=== PATIENT | male | born 1935 | race Caucasian/White ===

== ENCOUNTER 2017-07-04 13:27 | Outpatient (CLI) | payer MEDICARE ==
[~2017-07-04 13:27] MED LIST: ASPI-1265 PO; BUSP10TA11 PO; CHOL100044 PO; LOVA20TA2 PO; MELO-102 PO; OMEP-50 PO; POTA8TAB3 PO; SPIR1TAB4 PO
== END 2017-07-04 23:59 | disposition home or self-care (01) ==
LOC: CARD DIAG 13:27
PROVIDERS: ATTEND Internal Medicine Cardiovascular Disease
DX: I08.2 Rheumatic disorders of both aortic and tricuspid valves (principal); R53.83 Other fatigue; I10 Essential (primary) hypertension
CPT/HCPCS: 93306

== ENCOUNTER 2017-09-28 07:17 | Inpatient (IN) | payer MEDICARE ==
[~2017-09-28] VITALS: Ht 185.4 cm; Wt 90.9 kg
[2017-09-28] MEDS ORDERED: normal saline 1000ML IV soln IV ONE (07:20)
[2017-09-28] MEDS ORDERED: azithromycin/NS 500mg/250ml 250 ML IV ONE (07:30)
[2017-09-28] MEDS ORDERED: CefTRIAXone 2gm/D5W 50ml 50 ML IV ONE (07:30)
[2017-09-28] MEDS ORDERED: ibuprofen 200mg tablet PO ONE (07:40)
[2017-09-28 07:41] LABS: CLARITY,URINE CLEAR (Clear); COLOR,URINE YELLOW (Yellow); GLUCOSE, URINE NEGATIVE (Neg); KETONES,URINE NEGATIVE (Neg); LEUKOCYTE ESTERASE ,URINE NEGATIVE (Neg); NITRITES, URINE NEGATIVE (Neg); OCCULT BLOOD,URINE TRACE-INTACT (Neg); PH,URINE 7.5 (4.8-8.0); PROTEIN,URINE NEGATIVE (Neg); UROBILINOGEN,URINE 0.2 E.U/dL (0.2-1.0)
[2017-09-28] MEDS ORDERED: GABA-534 PO (07:50)
[2017-09-28] MEDS ORDERED: BUSP15TA12 PO (07:51)
[2017-09-28 07:53] LABS: UA COLLECTION TYPE VOIDED
[2017-09-28 07:54] LABS: BACTERIA,URINE NONE SEEN /HPF (Neg); MUCUS STRANDS FEW /LPF (Neg); RBC,URINE 0-2 /HPF (0-2); SQUAMOUS EPITHELIAL CELL,UR NONE SEEN /LPF (FEW); WBC,URINE NONE SEEN /HPF (0-4)
[2017-09-28] MEDS ORDERED: HYDR200T84 PO (08:01)
[2017-09-28] MEDS ORDERED: ZOLP5TAB8 PO (08:01)
[2017-09-28 08:25] LABS: BASOPHILS % (AUTO) 0.1 % (0-1); EOSINOPHILS # (AUTO) 0.1 X10'3 (0-0.9); EOSINOPHILS % (AUTO) 0.8 % (0-6); HEMATOCRIT 43.6 % (42.0-52.0); HEMOGLOBIN 14.7 g/dl (14.0-17.9); LYMPHOCYTES # (AUTO) 0.1 X10'3 (1.1-4.8); MEAN CORPUSCULAR HEMOGLOBIN 29.1 PG (27.0-31.0); MEAN CORPUSCULAR HGB CONC 33.7 % (33.0-36.5); MEAN CORPUSCULAR VOLUME 86.6 FL (78-98); MEAN PLATELET VOLUME 7.3 FL (7.4-10.4); MONOCYTES # (AUTO) 0.2 X10'3 (0-0.9); MONOCYTES % (AUTO) 1.8 % (2-12); NEUTROPHILS # (AUTO) 9.4 X10'3 (1.8-7.7); NEUTROPHILS % (AUTO) 96.3 % (42-75); PLATELET COUNT 198 X10'3 (140-440); RED BLOOD COUNT 5.04 X10'6 (4.70-6.10); RED CELL DISTRIBUTION WIDTH 13.6 % (11.5-14.5); WHITE BLOOD COUNT 9.8 X10'3 (4.5-11.0)
[2017-09-28 08:37] LABS: PLATELET ESTIMATE NORMAL; TOTAL CELLS COUNTED 100
[2017-09-28 08:38] LABS: PARTIAL THROMBOPLASTIN TIME 31 SECONDS (22-32); PROTHROMBIN TIME 10.5 SECONDS (9.0-12.0)
[2017-09-28 08:43] LABS: ALANINE AMINOTRANSFERASE 26 U/L (12-78); ALBUMIN 3.6 G/DL (3.4-5.0); ALBUMIN/GLOBULIN RATIO 0.8 (1.1-1.5); ALKALINE PHOSPHATASE 116 IU/L (46-116); ANION GAP 9 (8-16); ASPARTATE AMINO TRANSFERASE 19 U/L (10-37); BLOOD UREA NITROGEN 19 MG/DL (7-18); BUN/CREATININE RATIO 13.5 (5.4-32.0); CALCIUM 9.6 MG/DL (8.5-10.1); CHLORIDE 98 MMOL/L (99-107); CREATININE 1.41 MG/DL (0.60-1.10); GLUCOSE 112 MG/DL (70-104); POTASSIUM 3.5 MMOL/L (3.5-5.1); SODIUM 135 MMOL/L (135-145); TOTAL CARBON DIOXIDE 28.3 MMOL/L (24-32); TOTAL PROTEIN 8.2 G/DL (6.4-8.2); eGFR 48 ML/MIN
[2017-09-28 08:51] LABS: MAGNESIUM 1.6 MG/DL (1.5-2.4); TROPONIN I < 0.04 NG/ML (0.0-0.05)
[2017-09-28] MEDS ORDERED: magnesium Cl slow-release 64mg tablet PO PRN (10:30)
[2017-09-28] MEDS ORDERED: mag hydrox/Alum hydrox/simeth 30ml oral suspension PO PRN (10:30)
[2017-09-28] MEDS ORDERED: magnesium 4gm in 100ml NS 100 ML IV PRN (10:30)
[2017-09-28] MEDS ORDERED: magnesium 1gm/100ml D5W IVPB 100 ML IV PRN (10:30)
[2017-09-28] MEDS ORDERED: potassium Cl 40MEQ/NS 500ml 500 ML IV PRN ×2 (10:30)
[2017-09-28] MEDS ORDERED: ondansetron/PF 4mg/2ml inj IV PRN (10:30)
[2017-09-28] MEDS ORDERED: acetaminophen 325mg tablet PO PRN (10:30)
[2017-09-28] MEDS: normal saline 1000ml 1,000 ML IV SCH ×2 (10:55→20:43)
[2017-09-28 18:00] VITALS: BP 105/47
[2017-09-28] MEDS ORDERED: pneumococcal 23-VAL P-sac vacc 25 mcg/0.5ml vial IMVAC ONE (19:15)
[2017-09-28] MEDS: gabapentin 300mg capsule PO SCH (20:42)
[2017-09-28] MEDS: docusate sod 100mg capsule PO SCH (20:42)
[2017-09-28] MEDS ORDERED: gabapentin 400mg capsule PO SCH (21:00)
[2017-09-28 22:00] VITALS: BP 107/51
[2017-09-29] MEDS: zolpidem 5mg tablet PO PRN ×2 (01:18→21:36)
[2017-09-29] MEDS: normal saline 1000ml 1,000 ML IV SCH ×2 (05:52→17:05)
[2017-09-29 06:13] LABS: BASOPHILS % (AUTO) 0.2 % (0-1); EOSINOPHILS # (AUTO) 0.6 X10'3 (0-0.9); EOSINOPHILS % (AUTO) 3.2 % (0-6); HEMATOCRIT 36.7 % (42.0-52.0); HEMOGLOBIN 12.3 g/dl (14.0-17.9); LYMPHOCYTES # (AUTO) 1.1 X10'3 (1.1-4.8); LYMPHOCYTES % (AUTO) 5.8 % (21-51); MEAN CORPUSCULAR HEMOGLOBIN 29.2 PG (27.0-31.0); MEAN CORPUSCULAR HGB CONC 33.6 % (33.0-36.5); MEAN PLATELET VOLUME 7.3 FL (7.4-10.4); MONOCYTES # (AUTO) 1.5 X10'3 (0-0.9); MONOCYTES % (AUTO) 7.8 % (2-12); NEUTROPHILS # (AUTO) 16.1 X10'3 (1.8-7.7); PLATELET COUNT 195 X10'3 (140-440); RED BLOOD COUNT 4.22 X10'6 (4.70-6.10); RED CELL DISTRIBUTION WIDTH 13.9 % (11.5-14.5); WHITE BLOOD COUNT 19.4 X10'3 (4.5-11.0)
[2017-09-29 06:29] LABS: ALBUMIN 2.6 G/DL (3.4-5.0); ANION GAP 12 (8-16); BLOOD UREA NITROGEN 22 MG/DL (7-18); BUN/CREATININE RATIO 16.5 (5.4-32.0); CALCIUM 8.9 MG/DL (8.5-10.1); CHLORIDE 102 MMOL/L (99-107); CREATININE 1.33 MG/DL (0.60-1.10); GLUCOSE 97 MG/DL (70-104); MAGNESIUM 1.7 MG/DL (1.5-2.4); POTASSIUM 3.4 MMOL/L (3.5-5.1); SODIUM 137 MMOL/L (135-145); TOTAL CARBON DIOXIDE 23.3 MMOL/L (24-32); eGFR 52 ML/MIN
[2017-09-29] MEDS: K and/or MAG REPLACEMENT MC SCH (07:05)
[2017-09-29 07:06] LABS: PLATELET ESTIMATE NORMAL; TOTAL CELLS COUNTED 100; TOXIC GRANULATION 1+
[2017-09-29 07:20] VITALS: BP 94/52
[2017-09-29] MEDS: aspirin 81mg tab.chew PO SCH (07:30)
[2017-09-29] MEDS: enoxaparin 40mg/0.4ml syringe SUBCUT SCH (07:30)
[2017-09-29] MEDS: gabapentin 300mg capsule PO SCH ×2 (07:30→19:56)
[2017-09-29] MEDS: hydroxychloroquine 200mg tablet PO SCH (07:30)
[2017-09-29] MEDS: busPIRone 15mg tablet PO SCH (07:30)
[2017-09-29] MEDS: azithromycin/NS 500mg/250ml 250 ML IV SCH (07:31)
[2017-09-29] MEDS: docusate sod 100mg capsule PO SCH ×2 (07:31→19:57)
[2017-09-29] MEDS ORDERED: cefTRIAXone 1g/NS 100ml IVPB 100 ML IV SCH (08:00)
[2017-09-29] MEDS: piperacillin/tazo 3.375gm/50ml 50 ML IV SCH ×3 (10:38→19:56)
[2017-09-29 10:44] VITALS: BP 111/52
[2017-09-29] MEDS: vancomycin inj 1,250 MG in normal saline 250ml IV soln 250 ML IV SCH ×2 (12:21→21:34)
[2017-09-29 18:00] VITALS: BP 145/51
[2017-09-29] MEDS: potassium Cl 20 mEq SR tablet PO PRN (19:56)
[2017-09-29] MEDS: lactobacillus rhamnosus 10,000 MMU CELLS/CAPSULE PO SCH (19:57)
[2017-09-29 22:00] VITALS: BP 144/57
[2017-09-30] MEDS: potassium Cl 20 mEq SR tablet PO PRN (00:54)
[2017-09-30] MEDS: piperacillin/tazo 3.375gm/50ml 50 ML IV SCH ×4 (01:02→20:51)
[2017-09-30] MEDS: normal saline 1000ml 1,000 ML IV SCH ×3 (03:19→23:05)
[2017-09-30 06:00] VITALS: BP 130/66
[2017-09-30 06:08] LABS: BASOPHILS # (AUTO) 0.1 X10'3 (0-0.2); BASOPHILS % (AUTO) 0.5 % (0-1); EOSINOPHILS # (AUTO) 0.9 X10'3 (0-0.9); EOSINOPHILS % (AUTO) 7.6 % (0-6); HEMATOCRIT 33.4 % (42.0-52.0); HEMOGLOBIN 11.5 g/dl (14.0-17.9); LYMPHOCYTES # (AUTO) 0.6 X10'3 (1.1-4.8); MEAN CORPUSCULAR HGB CONC 34.5 % (33.0-36.5); MEAN PLATELET VOLUME 7.7 FL (7.4-10.4); MONOCYTES # (AUTO) 0.7 X10'3 (0-0.9); MONOCYTES % (AUTO) 6.4 % (2-12); NEUTROPHILS # (AUTO) 9.2 X10'3 (1.8-7.7); NEUTROPHILS % (AUTO) 80.5 % (42-75); PLATELET COUNT 190 X10'3 (140-440); RED BLOOD COUNT 3.84 X10'6 (4.70-6.10); RED CELL DISTRIBUTION WIDTH 14.2 % (11.5-14.5); WHITE BLOOD COUNT 11.4 X10'3 (4.5-11.0)
[2017-09-30 06:25] LABS: ALBUMIN 2.3 G/DL (3.4-5.0); ANION GAP 6 (8-16); BLOOD UREA NITROGEN 16 MG/DL (7-18); BUN/CREATININE RATIO 12.4 (5.4-32.0); CALCIUM 8.6 MG/DL (8.5-10.1); CHLORIDE 106 MMOL/L (99-107); CREATININE 1.29 MG/DL (0.60-1.10); GLUCOSE 108 MG/DL (70-104); MAGNESIUM 1.8 MG/DL (1.5-2.4); POTASSIUM 3.7 MMOL/L (3.5-5.1); SODIUM 138 MMOL/L (135-145); TOTAL CARBON DIOXIDE 26.2 MMOL/L (24-32); eGFR 54 ML/MIN
[2017-09-30] MEDS: lactobacillus rhamnosus 10,000 MMU CELLS/CAPSULE PO SCH ×2 (07:35→20:51)
[2017-09-30] MEDS: hydroxychloroquine 200mg tablet PO SCH (07:36)
[2017-09-30] MEDS: docusate sod 100mg capsule PO SCH ×2 (07:36→20:51)
[2017-09-30] MEDS: gabapentin 300mg capsule PO SCH ×2 (07:36→20:51)
[2017-09-30] MEDS: aspirin 81mg tab.chew PO SCH (07:36)
[2017-09-30] MEDS: enoxaparin 40mg/0.4ml syringe SUBCUT SCH (07:37)
[2017-09-30] MEDS: azithromycin/NS 500mg/250ml 250 ML IV SCH (07:38)
[2017-09-30] MEDS: busPIRone 15mg tablet PO SCH (07:42)
[2017-09-30] MEDS: K and/or MAG REPLACEMENT MC SCH (07:54)
[2017-09-30] MEDS: vancomycin inj 1,250 MG in normal saline 250ml IV soln 250 ML IV SCH ×2 (10:29→22:06)
[2017-09-30 11:34] VITALS: BP 110/61
[2017-09-30 18:00] VITALS: BP 112/76
[2017-09-30] MEDS ORDERED: VANCOMYCIN LEVEL IV ONE (21:30)
[2017-09-30 22:00] VITALS: BP 128/63
[2017-09-30] MEDS: zolpidem 5mg tablet PO PRN (23:19)
[2017-10-01] MEDS: piperacillin/tazo 3.375gm/50ml 50 ML IV SCH ×4 (02:20→19:47)
[2017-10-01 06:00] VITALS: BP 107/62
[2017-10-01 06:01] LABS: HEMATOCRIT 37.7 % (42.0-52.0); HEMOGLOBIN 12.7 g/dl (14.0-17.9); MEAN CORPUSCULAR HEMOGLOBIN 29.3 PG (27.0-31.0); MEAN CORPUSCULAR HGB CONC 33.6 % (33.0-36.5); MEAN CORPUSCULAR VOLUME 87.2 FL (78-98); MEAN PLATELET VOLUME 7.8 FL (7.4-10.4); PLATELET COUNT 215 X10'3 (140-440); RED BLOOD COUNT 4.33 X10'6 (4.70-6.10); RED CELL DISTRIBUTION WIDTH 14.2 % (11.5-14.5); WHITE BLOOD COUNT 8.1 X10'3 (4.5-11.0)
[2017-10-01 06:16] LABS: ALBUMIN 2.8 G/DL (3.4-5.0); ANION GAP 9 (8-16); BLOOD UREA NITROGEN 13 MG/DL (7-18); BUN/CREATININE RATIO 10.2 (5.4-32.0); CALCIUM 9.4 MG/DL (8.5-10.1); CHLORIDE 105 MMOL/L (99-107); CREATININE 1.27 MG/DL (0.60-1.10); GLUCOSE 102 MG/DL (70-104); MAGNESIUM 1.7 MG/DL (1.5-2.4); POTASSIUM 3.6 MMOL/L (3.5-5.1); SODIUM 140 MMOL/L (135-145); TOTAL CARBON DIOXIDE 25.8 MMOL/L (24-32); eGFR 55 ML/MIN
[2017-10-01] MEDS: aspirin 81mg tab.chew PO SCH (07:12)
[2017-10-01] MEDS: hydroxychloroquine 200mg tablet PO SCH (07:13)
[2017-10-01] MEDS: docusate sod 100mg capsule PO SCH ×2 (07:13→19:48)
[2017-10-01] MEDS: gabapentin 300mg capsule PO SCH ×2 (07:13→19:48)
[2017-10-01] MEDS: lactobacillus rhamnosus 10,000 MMU CELLS/CAPSULE PO SCH ×2 (07:13→19:48)
[2017-10-01] MEDS: busPIRone 15mg tablet PO SCH (07:13)
[2017-10-01] MEDS: azithromycin 250mg tablet PO SCH (07:13)
[2017-10-01] MEDS: enoxaparin 40mg/0.4ml syringe SUBCUT SCH (07:15)
[2017-10-01 07:39] LABS: PLATELET ESTIMATE NORMAL; TOTAL CELLS COUNTED 100
[2017-10-01] MEDS: K and/or MAG REPLACEMENT MC SCH (08:00)
[2017-10-01 10:00] VITALS: BP 163/93
[2017-10-01] MEDS: normal saline 1000ml 1,000 ML IV SCH ×2 (10:19→19:05)
[2017-10-01] MEDS: vancomycin inj 1,250 MG in normal saline 250ml IV soln 250 ML IV SCH ×2 (10:19→22:03)
[2017-10-01 17:00] VITALS: BP 125/74
[2017-10-01] MEDS ORDERED: acetaminophen 325mg tablet PO PRN (18:35)
[2017-10-01 22:00] VITALS: BP 141/74
[2017-10-01] MEDS: zolpidem 5mg tablet PO PRN (23:17)
[2017-10-02] MEDS: piperacillin/tazo 3.375gm/50ml 50 ML IV SCH ×2 (01:48→07:33)
[2017-10-02] MEDS: normal saline 1000ml 1,000 ML IV SCH (05:44)
[2017-10-02 05:59] LABS: BASOPHILS % (AUTO) 0.7 % (0-1); EOSINOPHILS # (AUTO) 0.8 X10'3 (0-0.9); EOSINOPHILS % (AUTO) 10.6 % (0-6); HEMATOCRIT 37.9 % (42.0-52.0); HEMOGLOBIN 12.7 g/dl (14.0-17.9); LYMPHOCYTES # (AUTO) 0.8 X10'3 (1.1-4.8); LYMPHOCYTES % (AUTO) 11.5 % (21-51); MEAN CORPUSCULAR HEMOGLOBIN 29.3 PG (27.0-31.0); MEAN CORPUSCULAR HGB CONC 33.6 % (33.0-36.5); MEAN CORPUSCULAR VOLUME 87.2 FL (78-98); MEAN PLATELET VOLUME 7.9 FL (7.4-10.4); MONOCYTES # (AUTO) 0.8 X10'3 (0-0.9); MONOCYTES % (AUTO) 10.3 % (2-12); NEUTROPHILS % (AUTO) 66.9 % (42-75); PLATELET COUNT 241 X10'3 (140-440); RED BLOOD COUNT 4.34 X10'6 (4.70-6.10); RED CELL DISTRIBUTION WIDTH 13.9 % (11.5-14.5); WHITE BLOOD COUNT 7.4 X10'3 (4.5-11.0)
[2017-10-02 06:00] VITALS: BP 128/65
[2017-10-02 06:11] LABS: ALBUMIN 2.9 G/DL (3.4-5.0); ANION GAP 10 (8-16); BLOOD UREA NITROGEN 15 MG/DL (7-18); BUN/CREATININE RATIO 11.9 (5.4-32.0); CALCIUM 9.6 MG/DL (8.5-10.1); CHLORIDE 104 MMOL/L (99-107); CREATININE 1.26 MG/DL (0.60-1.10); GLUCOSE 95 MG/DL (70-104); MAGNESIUM 1.9 MG/DL (1.5-2.4); POTASSIUM 3.4 MMOL/L (3.5-5.1); SODIUM 140 MMOL/L (135-145); TOTAL CARBON DIOXIDE 26.3 MMOL/L (24-32); eGFR 55 ML/MIN
[2017-10-02] MEDS: azithromycin 250mg tablet PO SCH (07:33)
[2017-10-02] MEDS: hydroxychloroquine 200mg tablet PO SCH (07:34)
[2017-10-02] MEDS: lactobacillus rhamnosus 10,000 MMU CELLS/CAPSULE PO SCH (07:34)
[2017-10-02] MEDS: gabapentin 300mg capsule PO SCH (07:35)
[2017-10-02] MEDS: aspirin 81mg tab.chew PO SCH (07:35)
[2017-10-02] MEDS: busPIRone 15mg tablet PO SCH (07:35)
[2017-10-02] MEDS: docusate sod 100mg capsule PO SCH (07:36)
[2017-10-02] MEDS: enoxaparin 40mg/0.4ml syringe SUBCUT SCH (07:36)
[2017-10-02] MEDS ORDERED: potassium Cl 40MEQ/NS 500ml 500 ML IV PRN ×2 (09:15)
[2017-10-02] MEDS ORDERED: potassium Cl 20 mEq SR tablet PO PRN ×2 (09:15)
[2017-10-02] MEDS: K and/or MAG REPLACEMENT MC SCH (09:55)
[2017-10-02] MEDS: vancomycin inj 1,250 MG in normal saline 250ml IV soln 250 ML IV SCH (09:56)
[2017-10-02 10:00] VITALS: BP 111/69
[2017-10-02] MEDS ORDERED: pneumococcal 23-VAL P-sac vacc 25 mcg/0.5ml vial IMVAC ONE (10:00)
[2017-10-02] MEDS ORDERED: AZI25OT PO (13:46)
== END 2017-10-02 15:40 | disposition home or self-care (01) | DRG 871 ==
LOC: ER 07:18 → ED HOLD 10:27 → ORTHO 4S 12:10
PROVIDERS: ADMIT Internal Medicine; ATTEND Internal Medicine
PROC: 5A09357 Assistance with Respiratory Ventilation, Less than 24 Consecutive Hours, Continuous Positive Airway Pressure (ICD-10-PCS; principal; 2017-09-28)
PROC: 5A09357 Assistance with Respiratory Ventilation, Less than 24 Consecutive Hours, Continuous Positive Airway Pressure (ICD-10-PCS; 2017-09-30)
PROC: 5A09357 Assistance with Respiratory Ventilation, Less than 24 Consecutive Hours, Continuous Positive Airway Pressure (ICD-10-PCS; 2017-10-01)
DX: A41.9 Sepsis, unspecified organism (principal); J18.9 Pneumonia, unspecified organism; N17.9 Acute kidney failure, unspecified; I12.9 Hypertensive chronic kidney disease with stage 1 through stage 4 chronic kidney disease, or unspecified chronic kidney disease; N18.9 Chronic kidney disease, unspecified; E86.0 Dehydration; E87.6 Hypokalemia; G62.9 Polyneuropathy, unspecified; Z89.021 Acquired absence of right finger(s); Z79.899 Other long term (current) drug therapy; Z79.82 Long term (current) use of aspirin; Z23 Encounter for immunization
CPT/HCPCS: 36415; 71045; 71250; 80048; 80053; 80202; 81001; 83605; 83735; 83880; 84145; 84484; 85007; 85025; 85027; 85610; 85730; 87040; 87070; 90732; 93005; 96365; 96366; 96368; 97162; 97530; 99285; J0456; J0696; J1650; J2405; J2543; J3370; J7030

== ENCOUNTER 2019-03-23 05:54 | Day surgery (SDC) | payer MEDICARE ==
[2019-03-22 10:24] LABS: ALBUMIN 3.7 G/DL (3.4-5.0); ANION GAP 6 (8-16); BLOOD UREA NITROGEN 25 MG/DL (7-18); BUN/CREATININE RATIO 21.7 (5.4-32.0); CALCIUM 9.2 MG/DL (8.5-10.1); CHLORIDE 101 MMOL/L (99-107); CREATININE 1.15 MG/DL (0.60-1.10); GLUCOSE 96 MG/DL (70-104); POTASSIUM 3.7 MMOL/L (3.5-5.1); SODIUM 136 MMOL/L (135-145); TOTAL CARBON DIOXIDE 29.1 MMOL/L (24-32); eGFR 61 ML/MIN
[2019-03-22 10:26] LABS: BASOPHILS # (AUTO) 0.1 X10'3 (0-0.2); BASOPHILS % (AUTO) 1.2 % (0-1); EOSINOPHILS # (AUTO) 0.1 X10'3 (0-0.9); EOSINOPHILS % (AUTO) 2.2 % (0-6); HEMOGLOBIN 13.4 g/dl (14.0-17.9); LYMPHOCYTES # (AUTO) 0.7 X10'3 (1.1-4.8); LYMPHOCYTES % (AUTO) 15.2 % (21-51); MEAN CORPUSCULAR HEMOGLOBIN 29.3 PG (27.0-31.0); MEAN CORPUSCULAR HGB CONC 34.2 g/dL (33.0-36.5); MEAN CORPUSCULAR VOLUME 85.6 FL (78-98); MEAN PLATELET VOLUME 7.2 FL (7.4-10.4); MONOCYTES # (AUTO) 0.8 X10'3 (0-0.9); MONOCYTES % (AUTO) 18.9 % (2-12); NEUTROPHILS # (AUTO) 2.8 X10'3 (1.8-7.7); NEUTROPHILS % (AUTO) 62.5 % (42-75); PLATELET COUNT 192 X10'3 (140-440); RED BLOOD COUNT 4.56 X10'6 (4.70-6.10); RED CELL DISTRIBUTION WIDTH 13.4 % (11.5-14.5); WHITE BLOOD COUNT 4.4 X10'3 (4.5-11.0)
[2019-03-22 10:28] LABS: PARTIAL THROMBOPLASTIN TIME 31 SECONDS (22-32)
[2019-03-22 10:53] LABS: TOTAL CELLS COUNTED 100
[2019-03-22 10:54] LABS: LARGE PLATELETS FEW; PLATELET ESTIMATE NORMAL
[~2019-03-23] VITALS: Ht 177.8 cm; Wt 81.5 kg
[2019-03-23] VITALS (14 sets, daily range): BP systolic 97–155; BP diastolic 49–77
[~2019-03-23 05:54] MED LIST changes: +AZI25OT PO; -BUSP10TA11 PO; +BUSP15TA7 PO; +GABA-534 PO; +HYDR200T84 PO; -LOVA20TA2 PO; -MELO-102 PO; -OMEP-50 PO; -POTA8TAB3 PO; +ZOLP5TAB8 PO
[2019-03-23] MEDS ORDERED: normal saline 1000ml 1,000 ML IV SCH (06:15)
[2019-03-23] MEDS ORDERED: cefazolin/dext.iso 2gm/100ml 100 ML IV ONE (06:30)
[2019-03-23] MEDS ORDERED: MULT-1085 PO (06:34)
[2019-03-23] MEDS ORDERED: CLOT15CR73 TOP (06:34)
[2019-03-23] MEDS ORDERED: HYDR50TA3 PO (06:34)
[2019-03-23] MEDS ORDERED: LATA7.5D (06:34)
[2019-03-23] MEDS ORDERED: vitamin b12 PO (06:34)
[2019-03-23] MEDS ORDERED: ASCO10007 (06:34)
[2019-03-23] MEDS ORDERED: ACET-1015 PO (06:34)
[2019-03-23] MEDS ORDERED: CITRACAL PLUS (06:34)
[2019-03-23] MEDS ORDERED: GABA-534 PO (06:34)
[2019-03-23] MEDS ORDERED: LIDOcaine 1% W/epiNEPHrine 1:100,000 20ml vial ONE (07:15)
[2019-03-23] MEDS ORDERED: fentaNYL/PF 50MCG/1 ML 2ML syringe ONE (07:15)
[2019-03-23] MEDS ORDERED: midazolam 2 mg/2 ml injection ONE (07:15)
[2019-03-23] MEDS ORDERED: ceFAZolin 1000mg inj ONE (07:15)
[2019-03-23] MEDS ORDERED: vancomycin 1,000mg inj ONE (07:46)
[2019-03-23] MEDS ORDERED: verapamil 2.5 mg/ml inj IV ONE ×2 (08:06→08:25)
[2019-03-23] MEDS ORDERED: HYDROcodone/acetaminophen 10/325mg tab PO PRN (09:25)
[2019-03-23] MEDS ORDERED: HYDROcodone/acetaminophen 5mg/325mg tablet PO PRN (09:25)
[2019-03-23] MEDS ORDERED: VANCOMYCIN 1gm/H2O 200ml PB 200 ML IV ONE (09:25)
--- NOTE | 2019-03-23 10:00 | NUR ---
called. pt sustaining HR 140-150's, Pt is in afib on tele.denies cp, pt denies sob. on 2L 98%. New orders given. Administering medications as ordered.
[2019-03-23] MEDS ORDERED: diltiazem 5mg/ml 5ml inj. IV ONE (10:15)
[2019-03-23] MEDS ORDERED: amiodarone 150mg/dext, iso-os 100 ML IV ONE (10:15)
--- NOTE | 2019-03-23 10:15 | NUR ---
Correction vs charted 1015, 1030,1045,1100 pt was not SR as charted. pt was afib
[2019-03-23] MEDS ORDERED: carVEDilol 3.125mg tablet PO SCH (10:30)
--- NOTE | 2019-03-23 10:43 | NUR ---
Administered medication as ordered, pt tolerated well.
--- NOTE | 2019-03-23 10:50 | NUR ---
pt left floor to xray
--- NOTE | 2019-03-23 11:00 | NUR ---
pt back from xray.
--- NOTE | 2019-03-23 11:10 | NUR ---
pt has amiodarone running, vs stable as charted. will continue to monitor.
--- NOTE | 2019-03-23 12:30 | NUR ---
Reported pt status to MD. VS stable as charted. pt has tolerated medication as ordered. IV antibiotic as ordered. new order for EKG, now. Will continue to monitor.
--- NOTE | 2019-03-23 12:36 | NUR ---
Problems reprioritized. Patient report given, questions answered & plan of care reviewed with Sameera RN.
== END 2019-03-23 14:50 | disposition home or self-care (01) ==
LOC: SSTAY O 05:54
PROVIDERS: ATTEND Internal Medicine Cardiovascular Disease
DX: I47.1 Supraventricular tachycardia (principal); R53.83 Other fatigue; I49.5 Sick sinus syndrome; I10 Essential (primary) hypertension; E78.5 Hyperlipidemia, unspecified; R42 Dizziness and giddiness; I73.9 Peripheral vascular disease, unspecified; I48.91 Unspecified atrial fibrillation
CPT/HCPCS: 33208; 36415; 71046; 80048; 85025; 85610; 85730; 93005; C1785; C1894; C1898; J0282; J0690; J2250; J3010; J3370; J7030; 99152; 99153; A4565; A4620; A6449; J3490

== ENCOUNTER 2020-11-25 09:49 | Emergency (ER) | payer MEDICARE ==
[~2020-11-25] VITALS: Ht 175.3 cm; Wt 79.5 kg
[~2020-11-25 09:49] MED LIST changes: +ACET-1015 PO; +ASCO100031; -ASPI-1265 PO; -AZI25OT PO; -BUSP15TA7 PO; +CITRACAL PLUS; +CLOT15CR73 TOP; -HYDR200T84 PO; +HYDR50TA4 PO; +LATA7.5D; +MULT-1085 PO; +vitamin b12 PO
[2020-11-25 09:59] VITALS: BP 117/73
[2020-11-25] MEDS ORDERED: CASIRIVIMAB/IMDEVIMAB inject. 10 ML in normal saline 100ml IV soln 100 ML IV ONE (12:15)
== END 2020-11-25 14:00 | disposition home or self-care (01) ==
LOC: ER 09:50
DX: U07.1 COVID-19 (principal); R06.02 Shortness of breath; I10 Essential (primary) hypertension; J44.9 Chronic obstructive pulmonary disease, unspecified; Z98.890 Other specified postprocedural states; Z79.899 Other long term (current) drug therapy
CPT/HCPCS: 87635; 99284; C9803; M0243; Q0244